=== PATIENT | female | born 1960 | race Caucasian/White ===

== ENCOUNTER 2023-04-03 08:00 | Outpatient (CLI) | payer OTHER ==
[2023-04-05 12:09] LABS: GIARDIA LAMBLIA AG EIA Negative (Negative)
== END 2023-04-03 23:59 | disposition home or self-care (01) ==
LOC: LAB.R 08:00
PROVIDERS: ATTEND Physician Assistant Medical
DX: R19.7 Diarrhea, unspecified (principal)
CPT/HCPCS: 87045; 87046; 87177; 87209; 87329; 87427